=== PATIENT | female | born 1955 | race Caucasian/White ===

== ENCOUNTER → 2020-07-31 15:16 | Outpatient (CLI) | payer OTHER, SELFPAY ==
[2020-07-31 16:02] LABS: Add Manual Diff / Slide Review NO; Basophils Absolute Auto 0 /uL (0-100); Basophils Percent Auto 0.6 % (0-2); Eosinophils Absolute Auto 100 /uL (0-450); Eosinophils Percent Auto 1.4 % (2-4); Hematocrit 37.7 % (36-46); Hemoglobin 12.5 g/dL (12.0-16.0); Lymphocytes Absolute Auto 2200 /uL (1100-4500); Mean Corpuscular HGB Conc 33.1 % (30-36); Mean Corpuscular Hemoglobin 29.1 PG (26-34); Mean Corpuscular Volume 87.8 fL (80-100); Monocytes Absolute Auto 500 /uL (0-900); Monocytes Percent Auto 6.7 % (3-14); Neutrophils Absolute Auto 4900 /uL (1500-7000); Neutrophils Percent Auto 63.3 % (50-75); Platelet Count 189 X10^3/uL (150-400); Red Blood Cell Count 4.29 X10^6/uL (4.0-5.2); Red Cell Distribution Width 12.9 % (11.6-14.8); White Blood Cell Count 7.8 X10^3/uL (4.5-11.0)
[2020-07-31 16:33] LABS: Alanine Aminotransferase 17 IU/L (<35); Albumin 4.2 g/dL (3.5-5.0); Albumin Globulin Ratio 1.4 (1.0-2.8); Alkaline Phosphatase 33 U/L (38-126); Aspartate Aminotransferase 27 IU/L (14-36); Bilirubin Total 0.5 mg/dL (0.2-1.3); Blood Urea Nitrogen 16 mg/dL (7-17); Calcium 10.2 mg/dL (8.4-10.2); Carbon Dioxide 28 mmol/L (22-32); Chloride 104 mmol/L (98-107); Cholesterol 198 mg/dL (140-199); Estimated Glomerular Filt Rate > 60.0 mL/min (>60); Globulin 2.9 g/dL (1.7-4.1); Glucose 96 mg/dL (80-110); HDL Cholesterol 82 mg/dL (40-60); HEMOLYSIS < 15 (0-50); LDL Cholesterol Calculated 103 mg/dL (<100); Potassium 3.7 mmol/L (3.4-5.1); Sodium 139 mmol/L (137-145); Total Protein 7.1 g/dL (6.3-8.2); Triglycerides 66 mg/dL (35-150)
[2020-07-31 17:02] LABS: TSH w/ Reflex to FT4 1.44 uIU/mL (0.47-4.68)
[2020-08-01 07:18] LABS: Calcium 10.2 mg/dL (8.7-10.3); Parathyroid Hormone, Intact 92 pg/mL (15-65)
== END ==
PROVIDERS: PCP Family Medicine; Referring Provider Family Medicine; Visit Provider Family Medicine
DX: C50.919 Malignant neoplasm of unspecified site of unspecified female breast (principal); E34.9 Endocrine disorder, unspecified
CPT/HCPCS: 36415; 80053; 80061; 82310; 83970; 84443; 85025

== ENCOUNTER → 2020-08-28 13:58 | Outpatient (CLI) | payer OTHER, SELFPAY ==
--- NOTE | 2020-08-28 13:59 | DI.US.S_ITS ---
PROCEDURE: US THYROID INDICATIONS: ELEVATED PARATHYROID HORMONE TECHNIQUE: Real-time scanning was performed of the thyroid gland, with image documentation. COMPARISON: None. FINDINGS: Right: Thyroid lobe measures 4.8 x 1.0 x 1.2 cm, and is homogeneous in echotexture. Left: Thyroid lobe measures 4.3 x 1.0 x 1.1 cm, and is homogenous in echotexture. Isthmus: 2 mm thick. There is a 17 mm x 7 mm x 2 mm hypoechoic focus at the inferior aspect of the left thyroid, with internal vascularity. IMPRESSION: 1. Indeterminate hypoechoic focus adjacent to the left inferior thyroid with vascularity. Initial further assessment with neck CT with intravenous contrast is recommended. 2. No thyroid mass. ACR TI-RADS definitions and recommendations: TI-RADS 1 (benign): 0 points. FNA not needed. TI-RADS 2 (not suspicious): 2 points. FNA not needed. TI-RADS 3 (mildly suspicious): 3 points. * FNA if 2.5 cm or larger, follow up if 1.5 cm or larger (at 1, 3, and 5 years). TI-RADS 4 (moderately suspicious): 4-6 points. * FNA if 1.5 cm or larger, follow up if 1 cm or larger (at 1, 2, 3, and 5 years). TI-RADS 5 (highly suspicious): 7 points or more. * FNA if 1 cm or larger, follow up if 0.5 cm or larger (every year for 5 years). Dictated by: Dane Tenorio M.D. on 08/28/2020 at 15:39 Approved by: Dane Tenorio M.D. on 08/28/2020 at 15:41
== END ==
PROVIDERS: PCP Family Medicine; Referring Provider Family Medicine; Visit Provider Family Medicine
DX: E34.9 Endocrine disorder, unspecified (principal)
CPT/HCPCS: 76536

== ENCOUNTER → 2020-09-10 15:34 | Outpatient (CLI) | payer OTHER, SELFPAY ==
--- NOTE | 2020-09-10 15:35 | DI.RAD.S_ITS ---
PROCEDURE: XR SOFT TISSUE NECK INDICATIONS: abnormal thyroid ultrasound TECHNIQUE: 2 views of the neck were acquired. COMPARISON: [facility], , US THYROID, 08/28/2020, 13:12. FINDINGS: Airway: The airway appears patent. Soft tissues: Prevertebral soft tissues are normal in thickness. The epiglottis and aryepiglottic folds appear normal. No soft tissue gas. Bones: No suspicious bony lesions. Grade 1 anterolisthesis of C4 on C5 is noted. Degenerative disc disease throughout cervical spine is seen more prominent at C5-6 and C6-7 levels. IMPRESSION: No gross neck soft tissue abnormality. Airway is patent. Degenerative disc disease in cervical spine as above. Dictated by: Hernandez Skinner M.D. on 09/11/2020 at 12:32 Approved by: Hernandez Skinner M.D. on 09/11/2020 at 12:35
== END ==
PROVIDERS: PCP Family Medicine; Referring Provider Family Medicine; Visit Provider Family Medicine
DX: R93.89 Abnormal findings on diagnostic imaging of other specified body structures (principal); M50.322 Other cervical disc degeneration at C5-C6 level
CPT/HCPCS: 70360

== ENCOUNTER → 2020-09-21 12:01 | Outpatient (CLI) | payer OTHER, SELFPAY ==
[2020-09-21 12:28] LABS: BUN Creatinine Ratio 23.8 (6-22); Blood Urea Nitrogen 19 mg/dL (7-17); Calcium 10.5 mg/dL (8.4-10.2); Carbon Dioxide 28 mmol/L (22-32); Chloride 103 mmol/L (98-107); Estimated Glomerular Filt Rate > 60.0 mL/min (>60); Glucose 96 mg/dL (80-110); HEMOLYSIS 18 (0-50); Potassium 4.3 mmol/L (3.4-5.1); Sodium 139 mmol/L (137-145)
== END ==
PROVIDERS: PCP Family Medicine; Referring Provider Family Medicine; Visit Provider Family Medicine
DX: Z01.812 Encounter for preprocedural laboratory examination (principal)
CPT/HCPCS: 36415; 80048

== ENCOUNTER → 2020-09-24 10:32 | Outpatient (CLI) | payer OTHER, SELFPAY ==
--- NOTE | 2020-09-24 10:33 | DI.CT.S_ITS ---
PROCEDURE: CT SOFT TISSUE NECK W CON INDICATIONS: Abnormality on ultrasound, following recommendations TECHNIQUE: After the administration of intravenous contrast, 3.0 mm axial sections acquired from the sella to the aortic arch. Additional oblique axial 3.0 mm sections acquired through the pharynx. 3 mm thick coronal and sagittal reformats were generated. For radiation dose reduction, the following was used: automated exposure control. COMPARISON: [facility], US, US THYROID, 08/28/2020, 13:12. [facility], CR, XR SOFT TISSUE NECK, 09/10/2020, 15:45. FINDINGS: Image quality: Excellent. Lymph nodes: No enlarged lymph nodes seen throughout the neck. Vessels: Visualized vasculature appears patent. Neck spaces: The oropharynx, nasopharynx, and pharynx demonstrate no mucosal lesions. The vocal cords, false vocal cords, pyriform sinuses, epiglottis, vallecula, and tongue base all appear normal. Extramucosal spaces appear unremarkable. Glands: Posterior to the left thyroid inferiorly, there is a focus of enhancing tissue that measures 8 x 5 mm in greatest axial dimension and 13 mm craniocaudally, which enhances less intensely than the adjacent normal thyroid. Thyroid gland itself is unremarkable. The parotid and submandibular glands appear normal. Miscellaneous: Visualized brain and orbits appear normal. Lung apices appear clear. Superficial soft tissues appear normal. Bones: No suspicious bony lesions. Visualized sinuses and mastoids appear unremarkable. At least moderate inferior cervical spine degenerative change can be seen. IMPRESSION: There is a suspected 13 mm parathyroid adenoma seen posterior to the left thyroid lobe inferiorly. If it would be helpful for clinical management decision making, please consider a dedicated nuclear medicine parathyroid examination or a dedicated multiphase parathyroid protocol CT for further evaluation. Incidental note is made of: Lower cervical spine degenerative change Dictated by: Mick Almeida M.D. on 09/24/2020 at 10:51 Approved by: Mick Almeida M.D. on 09/24/2020 at 10:55
== END ==
PROVIDERS: PCP Family Medicine; Referring Provider Family Medicine; Visit Provider Family Medicine
DX: E34.9 Endocrine disorder, unspecified (principal); M81.0 Age-related osteoporosis without current pathological fracture; M47.812 Spondylosis without myelopathy or radiculopathy, cervical region
CPT/HCPCS: 70491; Q9967

== ENCOUNTER → 2020-11-30 09:15 | Outpatient (CLI) | payer OTHER, SELFPAY ==
[2020-11-30 12:14] LABS: COVID-19 CEPHEID PCR (VTM/NP) Negative (Negative)
== END ==
PROVIDERS: PCP Family Medicine; Referring Provider Nurse Practitioner; Visit Provider Nurse Practitioner
DX: Z20.822 Contact with and (suspected) exposure to COVID-19 (principal)
CPT/HCPCS: U0003

== ENCOUNTER → 2021-01-15 11:42 | Outpatient (CLI) | payer OTHER, SELFPAY | PROVIDERS: PCP Family Medicine; Visit Provider Nurse Practitioner Family | DX: N34.3 Urethral syndrome, unspecified (principal); R31.9 Hematuria, unspecified; R30.0 Dysuria | CPT/HCPCS: 87086 ==

== ENCOUNTER → 2021-01-21 10:48 | Outpatient (CLI) | payer OTHER, SELFPAY ==
[2021-01-21 14:09] LABS: Appearance Urine UA CLEAR; Bilirubin Urine UA NEGATIVE (NEGATIVE); Color Urine UA YELLOW; Glucose Urine UA NEGATIVE (Negative); Ketones Urine UA NEGATIVE (NEGATIVE); Leukocyte Esterase Urine UA NEGATIVE (NEGATIVE); Nitrite Urine UA NEGATIVE (Negative); Occult Blood Urine UA NEGATIVE (Negative); Protein Urine UA NEGATIVE (Negative); Specific Gravity Urine UA <=1.005 (1.000-1.035); Urobilinogen Urine UA 0.2 E.U./dL (0.2)
[2021-01-21 15:23] LABS: Bacteria Urine Occasional (0-1); Culture Indicated Urine Cult Not Indicated; RBC Urine None Seen (0-5/HPF); WBC Urine 0-1/HPF (0-5/HPF)
== END ==
PROVIDERS: PCP Family Medicine; Referring Provider Nurse Practitioner Family; Visit Provider Nurse Practitioner Family
DX: C50.919 Malignant neoplasm of unspecified site of unspecified female breast (principal); R31.9 Hematuria, unspecified
CPT/HCPCS: 81001

== ENCOUNTER → 2022-05-07 10:15 | Outpatient (CLI) | payer OTHER, SELFPAY ==
[2022-05-07 11:18] LABS: Albumin 4.3 g/dL (3.5-5.0); Blood Urea Nitrogen 18 mg/dL (7-17); Calcium 8.7 mg/dL (8.4-10.2); Carbon Dioxide 32 mmol/L (22-32); Chloride 101 mmol/L (98-107); Estimated Glomerular Filt Rate > 60 mL/min (>60); Glucose 94 mg/dL (80-110); HEMOLYSIS < 15 (0-50); Phosphorous 3.3 mg/dL (2.8-4.1); Potassium 4.1 mmol/L (3.4-5.1); Sodium 138 mmol/L (137-145)
[2022-05-07 11:33] LABS: Vitamin D 25 Hydroxy (D3) 37.8 ng/mL (30.0-100.0)
[2022-05-09 12:21] LABS: Parathyroid Hormone Int 46 pg/mL (15-65)
== END ==
PROVIDERS: PCP Family Medicine; Referring Provider Pharmacist; Visit Provider Pharmacist
DX: M81.0 Age-related osteoporosis without current pathological fracture (principal)
CPT/HCPCS: 36415; 80069; 82306; 83970

== ENCOUNTER → 2022-11-13 08:25 | Outpatient (CLI) | payer OTHER, SELFPAY ==
[2022-11-13 09:11] LABS: Albumin 4.2 g/dL (3.5-5.0); Blood Urea Nitrogen 17 mg/dL (7-17); Calcium 9.6 mg/dL (8.4-10.2); Carbon Dioxide 31 mmol/L (22-32); Chloride 97 mmol/L (98-107); Estimated Glomerular Filt Rate > 60 mL/min (>60); Glucose 107 mg/dL (80-110); HEMOLYSIS < 15 (0-50); Potassium 4.7 mmol/L (3.4-5.1); Sodium 135 mmol/L (137-145)
[2022-11-13 09:29] LABS: Vitamin D 25 Hydroxy (D3) 28.9 ng/mL (30.0-100.0)
== END ==
PROVIDERS: PCP Family Medicine; Referring Provider Pharmacist; Visit Provider Pharmacist
DX: M81.0 Age-related osteoporosis without current pathological fracture (principal)
CPT/HCPCS: 36415; 80069; 82306

== ENCOUNTER → 2022-12-19 09:01 | Outpatient (CLI) | payer MEDICARE, OTHER, SELFPAY ==
[2022-12-19 10:15] LABS: Albumin 4.1 g/dL (3.5-5.0); BUN Creatinine Ratio 24.7 (6-22); Blood Urea Nitrogen 21 mg/dL (7-17); Calcium 9.6 mg/dL (8.4-10.2); Carbon Dioxide 32 mmol/L (22-32); Chloride 102 mmol/L (98-107); Estimated Glomerular Filt Rate > 60 mL/min (>60); Glucose 110 mg/dL (80-110); HEMOLYSIS < 15 (0-50); Phosphorous 4.9 mg/dL (2.8-4.1); Potassium 4.4 mmol/L (3.4-5.1); Sodium 137 mmol/L (137-145)
[2022-12-19 10:28] LABS: Vitamin D 25 Hydroxy (D3) 41.6 ng/mL (30.0-100.0)
[2022-12-19 11:19] LABS: Prothrombin Time 11.8 SECONDS (10.1-12.7)
== END ==
PROVIDERS: PCP Family Medicine; Referring Provider Pharmacist; Visit Provider Family Medicine
DX: M81.0 Age-related osteoporosis without current pathological fracture (principal)
CPT/HCPCS: 36415; 80069; 82306; 85610

== ENCOUNTER → 2023-01-27 09:27 | Outpatient (CLI) | payer MEDICARE, OTHER, SELFPAY ==
[2023-01-27 10:58] LABS: Albumin 4.4 g/dL (3.5-5.0); BUN Creatinine Ratio 24.1 (6-22); Blood Urea Nitrogen 19 mg/dL (7-17); Calcium 9.5 mg/dL (8.4-10.2); Carbon Dioxide 30 mmol/L (22-32); Chloride 100 mmol/L (98-107); Estimated Glomerular Filt Rate > 60 mL/min (>60); Glucose 113 mg/dL (80-110); HEMOLYSIS < 15 (0-50); Phosphorous 4.5 mg/dL (2.8-4.1); Potassium 4.5 mmol/L (3.4-5.1); Sodium 139 mmol/L (137-145)
[2023-01-27 15:02] LABS: Vitamin D 25 Hydroxy (D3) 51.1 ng/mL (30.0-100.0)
== END ==
PROVIDERS: PCP Family Medicine; Referring Provider Pharmacist; Visit Provider Family Medicine
DX: M81.0 Age-related osteoporosis without current pathological fracture (principal)
CPT/HCPCS: 36415; 80069; 82306

== ENCOUNTER → 2023-06-16 14:48 | Outpatient (CLI) | payer MEDICARE, OTHER, SELFPAY ==
[2023-06-16 15:59] LABS: Albumin 4.7 g/dL (3.5-5.0); BUN Creatinine Ratio 28.9 (6-22); Blood Urea Nitrogen 22 mg/dL (7-17); Calcium 9.6 mg/dL (8.4-10.2); Carbon Dioxide 31 mmol/L (22-32); Chloride 102 mmol/L (98-107); Estimated Glomerular Filt Rate > 60 mL/min (>60); Glucose 97 mg/dL (80-110); HEMOLYSIS 16 (0-50); Phosphorous 4.6 mg/dL (2.8-4.1); Potassium 4.3 mmol/L (3.4-5.1); Sodium 136 mmol/L (137-145)
[2023-06-16 16:25] LABS: Vitamin D 25 Hydroxy (D3) 51.8 ng/mL (30.0-100.0)
== END ==
LOC: LAB 14:50
PROVIDERS: PCP Family Medicine; Referring Provider Pharmacist; Visit Provider Pharmacist
DX: M81.0 Age-related osteoporosis without current pathological fracture (principal)
CPT/HCPCS: 36415; 80069; 82306

== ENCOUNTER → 2023-10-09 09:17 | Outpatient (CLI) | payer MEDICARE, OTHER, SELFPAY ==
--- NOTE | 2023-10-09 09:19 | DI.RAD.S_ITS ---
PROCEDURE: XR FOOT LT MIN 3V INDICATIONS: Left foot pain TECHNIQUE: 3 views of the foot were acquired. COMPARISON: None. FINDINGS: Bones: No fractures or dislocations. No suspicious bony lesions. Soft tissues: No tibiotalar joint effusion. Achilles tendon appears normal. IMPRESSION: No visualized acute fracture or dislocation. However, if clinical concern and/or pain persist, short interval imaging followup in 7-10 days is recommended, as occult injury cannot be definitively excluded. Dictated by: Jacki Kraus M.D. on 10/09/2023 at 21:34 Approved by: Jacki Kraus M.D. on 10/09/2023 at 21:34
== END ==
LOC: RAD 09:18
PROVIDERS: PCP Family Medicine; Referring Provider Nurse Practitioner Family; Visit Provider Nurse Practitioner Family
DX: M79.672 Pain in left foot (principal)
CPT/HCPCS: 73630

== ENCOUNTER 2024-01-16 10:23 | Emergency (ER) | payer MEDICARE, OTHER, SELFPAY ==
[2024-01-16 10:55] VITALS: BP 118/71; PULSE 80; RESP 16; TEMP 36.6; O2SAT 97; BMI 20.9
--- NOTE | 2024-01-16 10:56 | DI.RAD.S_ITS ---
PROCEDURE: XR KNEE RT 3V INDICATIONS: injury to right knee. TECHNIQUE: 3 views of the knee were acquired. COMPARISON: [facility], CR, XR ANKLE RT MIN 3V, 01/16/2024, 11:03. FINDINGS: Bones: No fractures or dislocations. No suspicious bony lesions. Soft tissues: There is a mild joint effusion. No suspicious soft tissue calcifications. IMPRESSION: Mild joint effusion seen, without an acute bony abnormality by plain film. If it would be helpful for clinical management decision making, please consider a dedicated, scheduled knee MRI for further evaluation (assuming that there is no contraindication). Dictated by: Mick Almeida M.D. on 01/16/2024 at 10:44 Approved by: Mick Almeida M.D. on 01/16/2024 at 10:44
--- NOTE | 2024-01-16 11:00 | DI.RAD.S_ITS ---
PROCEDURE: XR ANKLE RT MIN 3V INDICATIONS: injury TECHNIQUE: 3 views of the ankle were acquired. COMPARISON: [facility], CR, XR KNEE RT 3V, 01/16/2024, 11:03. FINDINGS: Bones: No fractures or dislocations. Ankle mortise is normally aligned. No suspicious bony lesions. The talar dome demonstrates no mireya abnormality. Incidental note is made of an accessory ossicle, an os trigonum. Age-appropriate bony degenerative changes are seen. Soft tissues: No tibiotalar joint effusion. Achilles tendon appears normal. IMPRESSION: No acute plain film abnormality is seen. Dictated by: Mick Almeida M.D. on 01/16/2024 at 10:43 Approved by: Mick Almeida M.D. on 01/16/2024 at 10:43
[2024-01-16 13:41] VITALS: BP 136/81; PULSE 65; RESP 17; O2SAT 97
[2024-01-16 16:12] VITALS: BP 126/77; PULSE 76; RESP 18; O2SAT 98
--- NOTE | 2024-01-16 16:14 | PC.NURSE ---
During vital sign check patient requesting images on disc, educated that she would need to see the provider to get disc with images. Patient stated she needed the images for an appointment she had on Thursday and that she could see the report on the portal. Patient asked about wait time, told her that wait times continued and that I do not have an ETA for seeing a provider, patient stated that she will be leaving. Vital signs remained stable with both rechecks in waiting room, no acute distress noted and patient had been visualized standing without wheelchair use in waiting room.
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
== END 2024-01-16 16:08 | disposition left against medical advice (07) ==
PROVIDERS: Emergency Provider Emergency Medicine; PCP Family Medicine
DX: S89.91XA Unspecified injury of right lower leg, initial encounter (principal); M25.561 Pain in right knee
CPT/HCPCS: 73562; 73610; 99283

== ENCOUNTER → 2024-02-02 16:50 | Outpatient (CLI) | payer MEDICARE, OTHER, SELFPAY ==
--- NOTE | 2024-02-02 16:52 | DI.MRI.S_ITS ---
PROCEDURE: MR KNEE RT WO CON INDICATIONS: RIGHT KNEE PAIN TECHNIQUE: Noncontrast sagittal PD fast spin echo and T2 fast spin echo with fat saturation, sagittal 3-D FLASH with fat saturation; coronal T1 spin echo and PD fast spin echo with fat saturation, and axial PD fast spin echo with fat saturation through the knee. COMPARISON: None. FINDINGS: Image quality: Excellent. Menisci: In the medial meniscus, there is intrasubstance degeneration in the posterior horn and meniscus body, without tear. Mild extrusion of the medial meniscus body. The lateral meniscus is unremarkable. The Cruciate ligaments: The anterior and posterior cruciate ligaments appear intact. Medial structures: Grade 1 sprain of the MCL. Lateral structures: The lateral collateral ligament, long and short heads of the biceps femoris tendon appear intact. The popliteus tendon appears normal; the popliteofibular ligament appears intact. The posterosuperior and anteroinferior popliteomeniscal fascicles appear intact. The arcuate and fabellofibular ligaments appear intact, on either side of the lateral inferior geniculate artery. Iliotibial band appears normal. Anterior structures: The quadriceps tendon is unremarkable. Mild tendinosis of the distal patellar tendon. Mild superficial infrapatellar subcutaneous edema. No Hoffa's fat pad edema. The medial and the lateral patellofemoral ligaments are intact. Alignment of the patellofemoral compartment is anatomic. Bones and cartilage: Cartilage of the patellofemoral compartment is well maintained. The cartilage of the medial and lateral compartments are well maintained. No acute fracture. Small lobulated T2 hyperintense lesion in the distal femur, nonspecific and may represent a low-grade chondral lesion. Joint space: Small knee effusion. Trace popliteal cyst. Popliteal vasculature is unremarkable. No intra-articular body. 1.5 cm T2 hyperintense lesion posterior to the lateral aspect of the distal femur metadiaphysis, about the insertion of the lateral head of the gastrocnemius, likely representing a ganglion cyst. IMPRESSION: 1. Intrasubstance degeneration of the medial meniscus, without tear. Mild extrusion of the medial meniscus body. 2. Grade 1 sprain of the MCL. 3. No significant chondrosis. 4. 1.5 cm likely ganglion cyst posterior to the lateral distal femur metadiaphysis, about the insertion of the lateral head of the gastrocnemius. Dictated by: Lucia Briceno M.D. on 02/03/2024 at 10:59 Approved by: Lucia Briceno M.D. on 02/03/2024 at 11:10 the
== END ==
LOC: MRI 16:51
PROVIDERS: PCP Family Medicine; Referring Provider Orthopaedic Surgery Adult Reconstructive Orthopaedic Surgery; Visit Provider Orthopaedic Surgery Adult Reconstructive Orthopaedic Surgery
DX: S83.411A Sprain of medial collateral ligament of right knee, initial encounter (principal); M25.561 Pain in right knee
CPT/HCPCS: 73721

== ENCOUNTER → 2024-06-06 10:40 | Outpatient (CLI) | payer MEDICARE, OTHER, SELFPAY ==
[2024-06-06 12:27] LABS: Albumin 4.3 g/dL (3.5-5.0); BUN Creatinine Ratio 18.7 (6-22); Blood Urea Nitrogen 20 mg/dL (7-17); Calcium 9.1 mg/dL (8.4-10.2); Carbon Dioxide 31 mmol/L (22-32); Chloride 101 mmol/L (98-107); Estimated Glomerular Filt Rate 57 mL/min (>60); Glucose 101 mg/dL (80-110); HEMOLYSIS < 15 (0-50); Phosphorous 4.1 mg/dL (2.8-4.1); Potassium 4.8 mmol/L (3.4-5.1); Sodium 139 mmol/L (137-145)
[2024-06-06 12:37] LABS: Vitamin D 25 Hydroxy (D3) 57.7 ng/mL (30.0-100.0)
== END ==
PROVIDERS: PCP Physician Assistant; Referring Provider Pharmacist; Visit Provider Pharmacist
DX: M81.0 Age-related osteoporosis without current pathological fracture (principal)
CPT/HCPCS: 36415; 80069; 82306

== ENCOUNTER → 2024-11-28 08:48 | Outpatient (CLI) | payer MEDICARE, OTHER, SELFPAY ==
[2024-11-28 10:08] LABS: Albumin 4.5 g/dL (3.5-5.0); Blood Urea Nitrogen 22 mg/dL (7-17); Calcium 9.2 mg/dL (8.4-10.2); Carbon Dioxide 27 mmol/L (22-32); Chloride 102 mmol/L (98-107); Estimated Glomerular Filt Rate 54 mL/min (>60); Glucose 100 mg/dL (70-99); HEMOLYSIS < 15 (0-50); Phosphorous 4.3 mg/dL (2.8-4.1); Potassium 4.8 mmol/L (3.4-5.1); Sodium 137 mmol/L (137-145)
[2024-11-28 10:12] LABS: Vitamin D 25 Hydroxy (D3) 66.1 ng/mL (30.0-100.0)
== END ==
PROVIDERS: Pharmacist; PCP Physician Assistant; Referring Provider Internal Medicine Endocrinology, Diabetes & Metabolism; Visit Provider Internal Medicine Endocrinology, Diabetes & Metabolism
DX: M81.0 Age-related osteoporosis without current pathological fracture (principal)
CPT/HCPCS: 36415; 80069; 82306